=== PATIENT | male | born 1970 | race African-American/Black ===

== ENCOUNTER → 2019-08-01 09:28 | Outpatient (CLI) | payer BC ==
[2019-08-01 10:16] LABS: HEMATOCRIT 42.3 % (42.0-54.0); HEMOGLOBIN 13.8 g/dL (13.5-17.5); MCH 29.5 pg (26.0-34.0); MCHC 32.6 g/dL (31.0-37.0); MCV 90.4 fL (80.0-100.0); MEAN PLATELET VOLUME 10.2 fL (7.4-10.4); PLATELET COUNT 294 10x3/uL (130-400); RBC 4.68 10x6/uL (4.20-6.10); RDW 12.5 % (11.5-14.5)
[2019-08-01 13:41] LABS: EOSINOPHILS 2 % (0-7); LYMPHOCYTES 53 % (15-50); MONOCYTES 7 % (2-11); NEUTROPHILS 36 % (40-80); PLATELET ESTIMATE NORMAL; ROULEAUX OCC
[2019-08-01 15:09] LABS: ERYTHROCYTE SEDIMENTATION RATE 3 mm/hr (0-15)
== END | disposition home or self-care (01) ==
LOC: D.NM 09:28
PROVIDERS: ATTEND Orthopaedic Surgery
DX: M25.562 Pain in left knee (principal)

== ENCOUNTER → 2019-08-14 11:17 | Outpatient (CLI) | payer BC ==
[2019-08-14 12:18] LABS: EOS BF 1 %; MACROPHAGES BF 25 %; NEUT - BF 15 %
== END | disposition home or self-care (01) ==
LOC: D.LABREF 11:17
PROVIDERS: ATTEND Orthopaedic Surgery
DX: M25.562 Pain in left knee (principal)

== ENCOUNTER 2019-11-15 13:10 | Inpatient (IN) | payer BC, OTHER ==
[~2019-11-15] VITALS: Ht 180.3 cm; Wt 100.0 kg
[2019-12-05] MEDS ORDERED: VOLTAREN75 MG PO (15:31)
[2019-12-05] MEDS ORDERED: ULTRAM50 MG PO (15:31)
[2019-12-05] MEDS ORDERED: PREDNISONE5 MG PO (15:32)
[2019-12-05] MEDS ORDERED: LOVASTATIN20 MG PO (15:32)
[2019-12-06 09:15] LABS: CALC OSMOLALITY 281 mosm/kg (275-300); CALCIUM 8.8 mg/dL (8.5-10.1); CARBON DIOXIDE 30.9 mmol/L (21.0-32.0); CHLORIDE - SERUM 102 mmol/L (98-107); CREATININE - SERUM 1.1 mg/dL (0.6-1.3); GLUCOSE 87 mg/dL (74-106); SODIUM 142 mmol/L (136-145); UREA NITROGEN 13 mg/dL (7-18); eGFR NON AFRICAN AMERICAN 75 mL/min (90-120)
[2019-12-06 09:17] LABS: APTT 29.2 SECONDS (22.8-39.4); INR 0.94 (0.85-1.17); PROTIME 12.5 SECONDS (11.6-15.0)
[2019-12-06 09:27] LABS: HEMATOCRIT 42.7 % (42.0-54.0); HEMOGLOBIN 14.4 g/dL (13.5-17.5); MCH 30.6 pg (26.0-34.0); MCHC 33.7 g/dL (31.0-37.0); MCV 90.7 fL (80.0-100.0); MEAN PLATELET VOLUME 9.6 fL (7.4-10.4); PLATELET COUNT 308 10x3/uL (130-400); RBC 4.71 10x6/uL (4.20-6.10); RDW 12.8 % (11.5-14.5); WBC 4.8 10x3/uL (4.8-10.8)
[2019-12-06 09:32] LABS: BILIRUBIN NEGATIVE (NEGATIVE); GLUCOSE NEGATIVE (NEGATIVE); KETONE NEGATIVE (NEGATIVE); NITRITE NEGATIVE (NEGATIVE); SPECIFIC GRAVITY 1.015 (1.005-1.020); UROBILINOGEN NORMAL (NORMAL)
[2019-12-06 11:05] LABS: EOSINOPHILS 2 % (0-7); LYMPHOCYTES 33 % (15-50); MONOCYTES 11 % (2-11); NEUTROPHILS 52 % (40-80)
[2019-12-06 11:06] LABS: ANISOCYTOSIS OCC; PLATELET ESTIMATE NORMAL
[2019-12-11] VITALS (7 sets, daily range): BP systolic 144–171; BP diastolic 91–103; Ht 180.3 cm; Wt 100.0 kg
--- NOTE | 2019-12-11 12:46 | NUR ---
HIBICLENSE ALCOHOL PREP DONE PRIOR TO CHLORAPREP
--- NOTE | 2019-12-11 15:00 | NUR ---
PT ARRIVED TO UNIT VIA BED ACCOMPANINED BY HOSPITAL STAFF. PT IS ALERT AND ORIENTED. IV TO RT FA PATENT AND INFUSING LR AT 100ML/HR. SCD'S IN PLACE. LEFT KNEE JUAQUNI WRAP CDI. PT BP ELEVATED. PT STATES PAIN 05/06. WCTM.
--- NOTE | 2019-12-11 15:12 | NUR ---
RECEIVED C/O INTENSE PAIN TO LEFT KNEE. GIVEN 15MG TORADOL SLOW IVP FOR SAME. WILL MONITOR.
--- NOTE | 2019-12-11 17:08 | MORECARE ---
CASE MANAGEMENT DISCHARGE SUMMARY PATIENT: CAITY AGUILAR JR UNIT: [id number] ADM DATE: 12/11/19 AGE: 49 : 70 SEX: M ROOM/BED: D.1210 AUTHOR: AMPARO,DOC PHYSICIAN: REFERRING PHYSICIAN: GABE GAMEZ MD DATE OF SERVICE: 12/11/19 Discharge Plan Patient Name: CAITY AGUILAR Facility: [facility]:[place] : 1970 Planned Disposition: Outpatient PT\OT Anticipated Discharge Date: 12/13/19 Discharge Date: Expected LOS: 2 Initial Reviewer: [email or web address] Initial Review Date: 12/11/2019 Generated: 12/11/19 6:07 pm DCP- Discharge Planning Updated by [email or web address]: Jessie English on 12/11/19 4:[address] DC PLAN: Return home w/ OP therapy. PROCEDURE: L TKA OP THERAPY APPOINTMENT DATE: Wednesday @ [facility]. CM met with patient to complete initial dc planning assessment. CM educated patient on the CM role and verbal consent given by patient to complete assessment. CM verified patient's address, phone number, and emergency contact phone numbers. Patient lives at home independently with his two kids ages 16 and 10. At discharge patient plans to return home and feels this is a safe discharge. CM discussed availability of home health, rehab services, and medical equipment. Patient chose outpatient therapy at [facility] [phone]. MIKE form presented, explained, and signed for [facility]. Signed form placed in chart and left with the patient. CM called and spoke to Ashley to make appointment. OP Therapy order faxed to [facility] @ fax number [phone]. Patient reports transportation to and from therapy will be his sister. Transportation provider at discharge will be his sister. CM will continue to follow and will assist as needed with dc plans/needs. Jessie English RN, [facility] DCPIA - Discharge Planning Initial Assessment Updated by [email or web address]: Jessie English on 12/11/19 5:03 pm * Is the patient Alert and Oriented? Yes * How many steps to enter\exit or inside your home? * PCP Dr. Matthias Engel * Pharmacy [facility] * Preadmission Environment Home with Family * ADLs Independent * Other Equipment No equipment delivered - Romi notified. * List name and contact numbers for known caregivers / representatives who currently or will assist patient after discharge: Sharmila Phillips - girlfriend - [phone] * Verbal permission to speak to the caregivers and representatives has been obtained from the patient. Yes * Community resources currently utilized None * Additional services required to return to the preadmission environment? Yes * Can the patient safely return to the preadmission environment? Yes * Has this patient been hospitalized within the prior 30 days at any hospital? No Patient Name: CAITY AGUILAR Page [id number] at 1708 All edits/amendments must be made on the electronic document DICTATION DATE: 12/11/191706 HIGHWAY DESIGN ENGINEER: GALO 12/11/191706 RPT#: [id number] DC DATE: STATUS: ADM IN [facility] [address] [place] [address] END OF REPORT
--- NOTE | 2019-12-11 17:15 | MORECARE ---
CASE MANAGEMENT DISCHARGE SUMMARY PATIENT: CAITY AGUILAR JR UNIT: [id number] ADM DATE: 12/11/19 AGE: 49 : 70 SEX: M ROOM/BED: D.1210 AUTHOR: AMPARO,DOC PHYSICIAN: REFERRING PHYSICIAN: GABE GAMEZ MD DATE OF SERVICE: 12/11/19 Discharge Plan Patient Name: CAITY AGUILAR Facility: [facility]:[place] : 1970 Planned Disposition: Outpatient PT\OT Anticipated Discharge Date: 12/13/19 Discharge Date: Expected LOS: 2 Initial Reviewer: [email or web address] Initial Review Date: 12/11/2019 Generated: 12/11/19 6:15 pm DCP- Discharge Planning Updated by [email or web address]: Jessie English on 12/11/19 4:[address] DC PLAN: Return home w/ OP therapy. PROCEDURE: L TKA OP THERAPY APPOINTMENT DATE: Wednesday @ [facility]. CM met with patient to complete initial dc planning assessment. CM educated patient on the CM role and verbal consent given by patient to complete assessment. CM verified patient's address, phone number, and emergency contact phone numbers. Patient lives at home independently with his two kids ages 16 and 10. At discharge patient plans to return home and feels this is a safe discharge. CM discussed availability of home health, rehab services, and medical equipment. Patient chose outpatient therapy at [facility] [phone]. MIKE form presented, explained, and signed for [facility]. Signed form placed in chart and left with the patient. CM called and spoke to Ashley to make appointment. OP Therapy order faxed to [facility] @ fax number [phone]. Patient reports transportation to and from therapy will be his sister. Transportation provider at discharge will be his sister. CM will continue to follow and will assist as needed with dc plans/needs. Jessie English RN, [facility] DCPIA - Discharge Planning Initial Assessment Updated by [email or web address]: Jessie English on 12/11/19 5:03 pm * Is the patient Alert and Oriented? Yes * How many steps to enter\exit or inside your home? * PCP Dr. Matthias Engel * Pharmacy [facility] * Preadmission Environment Home with Family * ADLs Independent * Other Equipment No equipment delivered - Romi notified. * List name and contact numbers for known caregivers / representatives who currently or will assist patient after discharge: Sharmila Phillips - girlfriend - [phone] * Verbal permission to speak to the caregivers and representatives has been obtained from the patient. Yes * Community resources currently utilized None * Additional services required to return to the preadmission environment? Yes * Can the patient safely return to the preadmission environment? Yes * Has this patient been hospitalized within the prior 30 days at any hospital? No Coverage Notice Reviewer: [id number] Inocencia English Notice Issued Date-Time: 12/11/2019 16:15 Notice Type: Patient Choice Letter Notice Delivered To: Patient Relationship to Patient: Cattle Knocker Name: Delivery Method: - Julia Days: Prior Verbal Notification: Recipient Understood Notice: Yes Recipient Signature: Yes Med Rec Note Co-signed by Attending: Coverage Notice Comment: [facility] Last DP export: 12/11/19 4:08 p Patient Name: CAITY AGUILAR Page [phone] at 1715 All edits/amendments must be made on the electronic document DICTATION DATE: 12/11/191714 WATER CHASER: GALO 12/11/191714 RPT#: [id number] DC DATE: STATUS: ADM IN [facility] [address] [place] [address] END OF REPORT
--- NOTE | 2019-12-11 17:45 | NUR ---
PT EATING DINNER. BP REMAINS SLIGHTLY ELEVATED. WCTM.
--- NOTE | 2019-12-11 19:30 | NUR ---
SITTING UP IN BED WATCHING TV. ALERT AND ORIENTED X4. RESP EVEN AND NONLABORED. JUAQUIN WRAP NOTED TO LT KNEE WITH BLOODY DRAINAGE NOTED FROM EARLIER. ICE PACK IN USE. PLEXI BOOT NOTED TO LT FOOT. SCD NOTED TO RLE. 1/2 NS @ 100 MLHR INFUSING IN RT FOREARM. RATES PAIN IN LT KNEE 7. CL IN REACH.
--- NOTE | 2019-12-11 23:25 | NUR ---
MEDICATED WITH PERCOCET FOR C/O LT KNEE PAIN. CL IN REACH.
[2019-12-12 00:58] VITALS: BP 145/97
[2019-12-12 04:00] VITALS: BP 118/76
--- NOTE | 2019-12-12 04:41 | NUR ---
BED BATH AND LINEN CHANGE PERFORMED AT THIS TIME PER TECH. CL IN REACH.
[2019-12-12 06:56] LABS: HEMATOCRIT 37.9 % (42.0-54.0); HEMOGLOBIN 12.3 g/dL (13.5-17.5); MCH 29.6 pg (26.0-34.0); MCHC 32.5 g/dL (31.0-37.0); MCV 91.3 fL (80.0-100.0); MEAN PLATELET VOLUME 9.8 fL (7.4-10.4); RBC 4.15 10x6/uL (4.20-6.10); RDW 12.6 % (11.5-14.5); WBC 7.7 10x3/uL (4.8-10.8)
--- NOTE | 2019-12-12 07:30 | NUR ---
AWAKE AND ALERT. ORIENTED X3. C/O SOME PAIN TO LEFT KNEE. WILL MONITOR. ALSO HAS HICCUPS AT THIS TIME. WILL MONITOR. LUNGS ARE CLEAR BILATERALLY, NO COUGH NOTED. SKIN IS INTACT WITHOUT REDNESS EXCEPT INCISION TO LEFT KNEE WHICH HAS A DRY INTACT DRESSING IN PLACE. IV TO RIGHT FOREARM IS PATENT WITHOUT REDNESS AT INSERTION SITE. BREAKFAST SERVED IN ROOM. DENIES NEEDS.
--- NOTE | 2019-12-12 07:30 | NUR ---
AWAKE AND ALERT. ORIENTED X3. C/O LEFT KNEE PAIN LEVEL 4. WILL MONITOR. LUNGS ARE CLEAR BILATERALLY, NO COUGH NOTED. SKIN IS INTACT WITHOUT REDNESS EXCEPT INCISION TO LEFT KNEE WHICH HAS A DRY INTACT DRESSING IN PLACE. BREAKFAST SERVED IN ROOM. DENIES NEEDS.
[2019-12-12 08:11] VITALS: BP 127/72
--- NOTE | 2019-12-12 10:04 | NUR ---
REQUESTED PAIN MED FOR PAIN LEVEL 8 TO LEFT KNEE. GIVEN ONE PERCOCET PO FOR SAME. WILL MONITOR. UP TO CHIAR AT BEDSIDE PER PT. DENIES OTHER NEEDS. CONTINUES WITH HICCUPS.
--- NOTE | 2019-12-12 12:00 | NUR ---
LUNCH SERVED IN ROOM. FEEDS SELF. DENIES NEEDS.
[2019-12-12 12:21] VITALS: BP 127/81
--- NOTE | 2019-12-12 13:00 | NUR ---
BACK TO BED PER PT. CONTINUES WITH HICCUPS.
--- NOTE | 2019-12-12 14:30 | NUR ---
NOTIFIED [facility] HICKMAN APN OF CONTINUED HICCUPS. NEW ORDERS RECEIVED.
--- NOTE | 2019-12-12 15:32 | NUR ---
REQUESTED AND GIVEN ONE PERCOCET PO FOR C/O LEFT KNEE PAIN LEVEL 10. WILL MONITOR.
[2019-12-12 16:45] VITALS: BP 160/98
--- NOTE | 2019-12-12 18:00 | NUR ---
ATE ONLY A FEW BITES OF SUPPER. WAS WORN OUT FROM HICCUPS. THESE HAVE FINALLY STOPPED. NO CHANGES NOTED. DENIES NEEDS.
[2019-12-12 19:44] VITALS: BP 144/79
--- NOTE | 2019-12-12 19:50 | NUR ---
LYING IN BED. ALERT AND ORIENTED X4. HICCUPS STARTED BACK UP AGAIN. RESP IRREG, NONLABORED. C/O PAIN IN LT KNEE 7. JUAQUIN WRAP NOTED WITH OLD DRAINAGE. PLEXI BOOT ON LT FOOT. SCD ON RLE. USES URINAL. SALINE LOCK NOTED TO RT FOREARM. TEMP IS ELEVATED. ENCOURAGED USE OF I.S. HE STATED E HAD BEEN USING IT. SR ELEVATED X2. CL IN REACH. PEDAL PULSES STRONG BILAT.
--- NOTE | 2019-12-12 20:00 | NUR ---
MEDICATED WITH TORADOL FOR C/O PAIN IN LT KNEE. CL IN REACH.
--- NOTE | 2019-12-13 00:30 | NUR ---
STILL HAS HICCUPS. MEDICATED WITH THORAZINE PO ORDERED FOR THIS. C/O PAIN IN LT KNEE. MEDICATED WITH PERCOCET ORDERED. CL IN REACH.
[2019-12-13 00:31] VITALS: BP 145/92
--- NOTE | 2019-12-13 01:33 | NUR ---
RESTING WITH EYES CLOSED. RESP SHALLOW, NONLABORED. NO HICCUPS. CL IN REACH.
--- NOTE | 2019-12-13 03:04 | NUR ---
LYING IN BED WITH EYES CLOSED. RESP EVEN AND NONLABORED. NO DISTRESS. CL IN REACH.
--- NOTE | 2019-12-13 04:10 | NUR ---
SWAGE TOOLSETTER OFFERED TO ASSIST PT WITH BATH AND HE STATES HE WILL DO IT LATER AROUND 0530 OR 0600.
[2019-12-13 04:26] VITALS: BP 140/83
--- NOTE | 2019-12-13 05:00 | NUR ---
MEDICATED WITH PERCOCET FOR C/O PAIN IN LT KNEE RATING 7. CL IN REACH.
[2019-12-13 06:10] LABS: HEMATOCRIT 33.4 % (42.0-54.0); HEMOGLOBIN 10.8 g/dL (13.5-17.5); MCH 29.2 pg (26.0-34.0); MCHC 32.3 g/dL (31.0-37.0); MCV 90.3 fL (80.0-100.0); MEAN PLATELET VOLUME 9.9 fL (7.4-10.4); RBC 3.7 10x6/uL (4.20-6.10); RDW 12.5 % (11.5-14.5); WBC 7.4 10x3/uL (4.8-10.8)
[2019-12-13 09:07] VITALS: BP 148/98
--- NOTE | 2019-12-13 09:10 | NUR ---
PT ALERT X 4. BREATH SOUNDS CLEAR BILAT. HICCUPS. IV TO RIGHT FOREARM, SALINE LOCKED. JUAQUIN TO LEFT KNEE, SWELLING. PT REPORTING PAIN OF 7/10, MEDICATED PER ORDERS, WILL MONITOR. BED LOW, CALL LIGHT IN REACH. NO OTHER NEEDS AT THIS TIME.
--- NOTE | 2019-12-13 11:11 | OP ---
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 POSTOPERATIVE DIAGNOSIS: Painful total knee arthroplasty of the left knee. PROCEDURE: Revision total knee arthroplasty. SURGEON: Gabe Gamez MD ANESTHESIA: HENNA Fortune INTRAOPERATIVE COMPLICATIONS: None. SUMMARY OF PATHOLOGIC FINDINGS: Upon entering the knee, the patient mostly had a very large effusion. There was evidence of lucency underneath the prosthesis as it was removed very easily from the femoral side. The patient also had a very long, approximately 6 cm x 1 cm x 1 cm heterotopic ossification in the mid substance of the quad muscle. This required excision and extensive quadriceps repair after the total knee arthroplasty was revised. The total knee revision was the Triathlon system, size 5 distal femur with a 15 x 150 fluted stem. The tibial baseplate was a size 5 with a 6 mm offset set at 12 o'clock with 17 x 100 stem in the tibia. All was cemented. The tibial baseplate X3 polyethylene size 5. ESTIMATED BLOOD LOSS: 200 cc. OPERATIVE SUMMARY IN DETAIL: After obtaining the appropriate preoperative orthopedic surgery consent as well as anesthetic consultation, evaluation, and clearance, the patient was brought to the operating room and placed on the operating table in the supine position. After adequate general laryngeal mask airway was administered, tourniquet was placed on the proximal aspect of left lower extremity. Left lower extremity was then prepped and draped in routine sterile fashion. The leg was exsanguinated. Tourniquet inflated to 350 mmHg. Incision was made midline with the previous incision made. This was dissected carefully down to the paramedian aspect of the knee where it does appear the patient had a previous straight line incision with a medial patellar heal rather than a paramedian arthrotomy. At this time; however paramedian arthrotomy was performed. Careful dissection was done in the mid substance of the quad to entirely identify the large area of heterotopic ossification as mentioned above. It was removed en bloc and sent to pathology for permanent specimen. At this point, further takedown was required including partial tibial tubercle release of the patella tendon, which was enhanced with fixation at the end of the case using a suture anchor from Arthrex. After exposure of the knee, the cross pin of the Biomet prosthesis was removed as was the polyethylene. Next with very little bone loss and very little degree of difficulty, distal femur was removed after a few passes with flexible osteotomes. This was indicating that a bone scan was likely right in its loosening. Again, there was no evidence for infection. Having completed this, the tibial baseplate was likewise removed and it was also rather easily removed, all excess cobalt blue cement was removed as well. Serial and sequential reaming of the femur was then followed by measurements and chamfer cuts. The trial corresponding to the above size was OPERATIVE REPORT [id number] CAITY AGUILAR JR put into place and it fit nicely. Attention was then returned to the proximal tibia. After all intramedullary cement had been removed, serial and sequential reaming were done for a size 17. Proximal cleanup cut was done and then the size 5 trial was put into place and it was found that a 6 mm offset set at 12:00 was most appropriate for appropriate base plate positioning. This was then held into place with the pins while proximal tibia stamping was done for final preparations. Guide was then put and several different trials were put in. It was felt that the 11 was most stable as 13 seemed to be too tight and 9 was somewhat unstable; [address], taken through range of motion and found to be stable in all planes. At this point, all of the trials were removed. Pulsatile irrigation was then done to the entire cavity, removal of all small loose debris was then followed by cementing the implants which had been put together on the back table. The implants were cemented into place and the polyethylene was put into place. The knee was reduced, taken through range of motion and found to be stable in all planes. At this point, a suture anchor from Arthrex was placed into the tibial tuberosity and the 2 tails of the FiberWire were then placed through the patella tendon to reinforce the patellar tendon that had been gently released for exposure. Having completed this, the proximal quadriceps tendon that required excision of the large heterotopic ossification was reconstructed using Ethibond with a slight VMO advancement and repair of the area that was left cavitary. The paramedian arthrotomy was then closed with #2 Ethibond by Abdiel Mondragon after the knee was filled with a gram of vancomycin and a gram of tobramycin. Having completed this, the skin was reapproximated with #1 Vicryl followed by 2-0 Vicryl and skin ming. Sterile dressings were applied. Tourniquet was deflated. A compass hinged knee brace was placed with a 0 to 30 lock. The patient was awakened and taken to recovery in stable condition. All final needle and sponge counts were correct. TRANSINT:[id number] Voice Confirmation ID: [id number] DOCUMENT ID: [id number] VERA GAR, GABE CHAPA at 1111 CC: [id number] DICTATION DATE: 12/11/19 1408 KITCHEN SUPERVISOR: 12/11/19 2229 ADM IN [facility] [id number] [place] [address]
--- NOTE | 2019-12-13 19:26 | NUR ---
PATIENT RESTING IN BED WITH NO S/S OF DISTRESS AND REQUESTED A PAIN PILL. PATIENT DENIES OTHER NEEDS AT THIS TIME. BED IN LOWEST POSITION AND CALL LIGHT WITHIN REACH. ENCOURAGED THE PATIENT TO CALL IF HE HAS OTHER NEEDS. WILL CONTINUE TO MONITOR.
[2019-12-13 20:25] VITALS: BP 122/58; BP 130/67
[2019-12-14] VITALS: BP 126/89
[2019-12-14 05:08] VITALS: BP 140/88
[2019-12-14 07:00] VITALS: BP 138/82
--- NOTE | 2019-12-14 07:17 | NUR ---
PT IS SITTING IN BED WITH EYES OPEN. RESPIRATIONS ARE EVEN AND UNLABORED. PT IS AAO X 4. INCENTIVE SPIROMETER AT BEDSIDE. DRESSING TO LEFT KNEE NOTED WITH SMALL AMOUNT OF DRIED BLOODY DRAINAGE AT BOTTOM OF JUAQUIN WRAP. PT DENIES PRESENCE OF NUMBNESS/TINGLING TO BUE AND BLE EXTREMITIES. BILATERAL PEDAL PULSES PALP AND CAP REFILL IS < 3. PT DENIES PRESENCE OF N/V AT THIS TIME. BED IS IN LOWEST POSITION. CALL LIGHT AND BEDSIDE TABLE ARE WITHIN REACH. SIDE RAILS X 2. PT DENIES FURTHER NEEDS. WILL CONT TOMONITOR.
[2019-12-14] MEDS ORDERED: ATARAX 25 MG TA25 MG PO (08:27)
[2019-12-14] MEDS ORDERED: PERCOCET 10-321 EAC1 PO (08:27)
[2019-12-14] MEDS ORDERED: ELIQUIS2.5 MG PO (08:27)
[2019-12-14 11:00] VITALS: BP 137/94
--- NOTE | 2019-12-14 11:54 | NUR ---
DRESSING CHANGED PER ORDER. ALL DISCHARGE INSTRUCTIONS COVERED WITH PT. PT DENIES FURTHER QUESTIONS/CONCERNS/NEEDS AT THIS TIME. PIV TO RIGHT FA REMOVED WITH CATHETER TIP INTACT. DRESSING APPLIED. ALL DISCHARGE PAPERS SIGNED BY PT. PT TO NOTIFY NURSE OF NEED OF TRANSPORT WHEN TRANSPORTATION HOME ARRIVES. PT DENIES FURTHER NEEDS. SIGNED DISCHARGE PAPERS PLACED IN PT CHART.
--- NOTE | 2019-12-14 13:13 | NUR ---
PT TRANSPORTED OFF FLOOR VIA [facility] ESCORTED BY [facility]. PT DENIES FURTHER QUESTIONS/CONCERNS/NEEDS AT THIS TIME. PT THANKS THIS NURSE FOR CARE GIVEN DURING THIS SHIFT.
--- NOTE | 2019-12-15 14:04 | MORECARE ---
CASE MANAGEMENT DISCHARGE SUMMARY PATIENT: CAITY AGUILAR JR UNIT: [id number] ADM DATE: 12/11/19 AGE: 49 : 70 SEX: M ROOM/BED: D.1210 AUTHOR: AMPARO,DOC PHYSICIAN: REFERRING PHYSICIAN: GABE GAMEZ MD DATE OF SERVICE: 12/15/19 Discharge Plan Patient Name: CAITY AGUILAR Facility: [facility]:[place] : 1970 Planned Disposition: Outpatient PT\OT Anticipated Discharge Date: 12/13/19 Discharge Date: 12/14/2019 Expected LOS: 2 Initial Reviewer: [email or web address] Initial Review Date: 12/11/2019 Generated: 12/15/19 3:04 pm DCP- Discharge Planning Updated by [email or web address]: Jessie English on 12/11/19 4:[address] DC PLAN: Return home w/ OP therapy. PROCEDURE: L TKA OP THERAPY APPOINTMENT DATE: Wednesday @ 08. CM met with patient to complete initial dc planning assessment. CM educated patient on the CM role and verbal consent given by patient to complete assessment. CM verified patient's address, phone number, and emergency contact phone numbers. Patient lives at home independently with his two kids ages 16 and 10. At discharge patient plans to return home and feels this is a safe discharge. CM discussed availability of home health, rehab services, and medical equipment. Patient chose outpatient therapy at [facility] [phone]. MIKE form presented, explained, and signed for [facility]. Signed form placed in chart and left with the patient. CM called and spoke to Ashley to make appointment. OP Therapy order faxed to [facility] @ fax number [phone]. Patient reports transportation to and from therapy will be his sister. Transportation provider at discharge will be his sister. CM will continue to follow and will assist as needed with dc plans/needs. Jessie English RN, [facility] DCPIA - Discharge Planning Initial Assessment Updated by [id number]: Jessie English on 12/11/19 5:03 pm * Is the patient Alert and Oriented? Yes * How many steps to enter\exit or inside your home? * PCP Dr. Matthias Engel * Pharmacy [facility] * Preadmission Environment Home with Family * ADLs Independent * Other Equipment No equipment delivered - Romi notified. * List name and contact numbers for known caregivers / representatives who currently or will assist patient after discharge: Sharmila Phillips - girlfriend - [phone] * Verbal permission to speak to the caregivers and representatives has been obtained from the patient. Yes * Community resources currently utilized None * Additional services required to return to the preadmission environment? Yes * Can the patient safely return to the preadmission environment? Yes * Has this patient been hospitalized within the prior 30 days at any hospital? No Coverage Notice Reviewer: [id number] Inocencia English Notice Issued Date-Time: 12/11/2019 16:15 Notice Type: Patient Choice Letter Notice Delivered To: Patient Relationship to Patient: Electrical Service Technician Name: Delivery Method: - Julia Days: Prior Verbal Notification: Recipient Understood Notice: Yes Recipient Signature: Yes Med Rec Note Co-signed by Attending: Coverage Notice Comment: [facility] Last DP export: 12/11/19 4:15 p Patient Name: CAITY AGUILAR Page [id number] at 1404 All edits/amendments must be made on the electronic document DICTATION DATE: 12/15/191403 CNC SET UP OPERATOR: GALO 12/15/19 1404 RPT#: [id number] DC DATE:12/14/19 STATUS: DIS IN [facility] [address] [place] [address] END OF REPORT
== END 2019-12-14 13:44 | disposition home or self-care (01) | DRG 468 ==
LOC: D.SDCHOLD 12-11 08:40 → D.M3 12-11 08:40 → D.SDCHOLD 12-11 10:00 → D.M3 12-11 14:57
PROVIDERS: ADMIT Orthopaedic Surgery; ATTEND Orthopaedic Surgery
PROC: 0SRD069 Replacement of Left Knee Joint with Oxidized Zirconium on Polyethylene Synthetic Substitute, Cemented, Open Approach (ICD-10-PCS; 2019-12-11)
PROC: 0SPD0JZ Removal of Synthetic Substitute from Left Knee Joint, Open Approach (ICD-10-PCS; principal; 2019-12-11 11:15)
DX: T84.84XA Pain due to internal orthopedic prosthetic devices, implants and grafts, initial encounter (principal); Y84.9 Medical procedure, unspecified as the cause of abnormal reaction of the patient, or of later complication, without mention of misadventure at the time of the procedure; I10 Essential (primary) hypertension; G47.00 Insomnia, unspecified

== ENCOUNTER → 2020-05-07 11:53 | Outpatient (CLI) | payer BC, OTHER ==
[2019-12-11 15:09] VITALS: BMI 30.7
[~2020-05-07 11:53] MED LIST: ATARAX 25 MG TA25 MG PO; ELIQUIS2.5 MG PO; LOVASTATIN20 MG PO; PERCOCET 10-321 EAC1 PO; PREDNISONE5 MG PO; ULTRAM50 MG PO; VOLTAREN75 MG PO
[2020-05-07 12:18] LABS: BASOPHILS 0.4 % (0-2); EOSINOPHILS 3.6 % (0-7); HEMATOCRIT 42.4 % (42.0-54.0); HEMOGLOBIN 13.6 g/dL (13.5-17.5); IMMATURE GRANULOCYTES 0.2 % (0-5); LYMPHOCYTES 41.8 % (15-50); MCH 28.6 pg (26.0-34.0); MCHC 32.1 g/dL (31.0-37.0); MCV 89.1 fL (80.0-100.0); MEAN PLATELET VOLUME 9.4 fL (7.4-10.4); MONOCYTES 8.9 % (2-11); NEUTROPHILS 45.1 % (40-80); RBC 4.76 10x6/uL (4.20-6.10); RDW 12.7 % (11.5-14.5); WBC 5.3 10x3/uL (4.8-10.8)
[2020-05-07 12:19] LABS: PLATELET COUNT 250 10x3/uL (130-400)
[2020-05-07 12:25] LABS: C-REACTIVE PROTEIN 0.7 mg/dL (0.0-0.9); CALC OSMOLALITY 278 mosm/kg (275-300); CALCIUM 8.6 mg/dL (8.5-10.1); CARBON DIOXIDE 31.6 mmol/L (21.0-32.0); CHLORIDE - SERUM 103 mmol/L (98-107); CREATININE - SERUM 1.1 mg/dL (0.6-1.3); GLUCOSE 97 mg/dL (74-106); SODIUM 139 mmol/L (136-145); UREA NITROGEN 16 mg/dL (7-18); eGFR NON AFRICAN AMERICAN 75 mL/min (90-120)
[2020-05-07 13:40] LABS: ERYTHROCYTE SEDIMENTATION RATE 7 mm/hr (0-15)
== END | disposition home or self-care (01) ==
LOC: D.LAB 11:53
PROVIDERS: ATTEND Orthopaedic Surgery
DX: M25.562 Pain in left knee (principal)

== ENCOUNTER → 2020-05-20 08:58 | Outpatient (CLI) | payer MEDICARE, OTHER ==
[2019-12-11 15:09] VITALS: BMI 30.7
== END | disposition home or self-care (01) ==
LOC: D.NM 08:58
PROVIDERS: ATTEND Orthopaedic Surgery
DX: M25.562 Pain in left knee (principal)

== ENCOUNTER → 2020-05-23 11:09 | Outpatient (CLI) | payer BC, OTHER ==
[2019-12-11 15:09] VITALS: BMI 30.7
--- NOTE | ~2020-05-23 | HEMODYNAMI ---
PATIENT:CAITY AGUILAR JR MEDICAL RECORD: [id number] : 70 [id number] ADMISSION DATE: 05/23/20 Generatedon:05/23/202011:55 Patient name: CAITY AGUILAR Patient #: [id number] SSN: : 1970 Date of study: 05/23/2020 Page: Of Hemodynamic Procedure Report Patient Data Patient Demographics Procedure consent was obtained First Name: CAITY Gender: Male Last Name: LAUREN Suffix: [facility] Initial: ERIN : 1970 Patient #: [id number] Age: 49 year(s) Race: Black Additional ID: [id number] Contact details [address]: [address] [place] [address] State: [place] City: [place] Zip code: [address] Past Medical History Allergies: No known allergies Admission Admission Data Admission Date: 05/23/2020 Admission Time: 11:09 Procedure Procedure Types Cath Procedure Peripheral Cath Diagnostic Procedure Miscellaneous Aspiration/Injection (Joint) Procedure Description Procedure Date Procedure Date: 05/23/2020 Procedure Start Time: 11:45 Procedure Staff Name Function Pancho Armstrong MD Performing Physician GUANACO MONROY RT Monitor Procedure Data Cath Procedure Fluoroscopy Diagnostic fluoroscopy Total fluoroscopy Time: 2 time: 2 min min Diagnostic fluoroscopy Total fluoroscopy dose: 1 dose: 1 mGy mGy Hemodynamics Rest Pre Cath Intra NCS Post Cath Procedure Log Time Note 11:35:36 GUANACO MONROY RT (R) sent for patient. Start room use. 11:35:37 Time tracking: Regular hours (M-F 7:00 - 5:00) 11:35:43 Patient received from Other to IR Alert and oriented. Tansferred to table in Supine position. 11:35:45 Signed procedure consent form obtained from patient. 11:35:47 Warm blankets applied, and samantha hugger turned on for patient comfort. 11:35:47 Correct patient and procedure confirmed by team. 11:35:48 - 11:35:50 Pre-procedure instructions explained to patient. 11:36:28 Patient allergic to No known allergies 11:36:29 Is patient on blood thinner?No 11:36:33 - 11:36:39 Left Knee was prepped with chlora-prep and draped in sterile fashion. 11:36:41 - 11:39:39 Physician paged 11:44:19 Physician arrived 11:44:19 --------ALL STOP TIME OUT------ 11:44:30 Left knee site verified by team. 11:45:05 Procedure started. 11:45:05 Full Disclosure recording started 11:45:10 SAFE-T PLUS MYELOGRAM TRAY opened to sterile field. 11:45:24 Local anesthetic to Left Knee with Lidocaine 1% by Pancho Armstrong MD.INITIAL ACCESS ONLY 11:50:17 Procedure ended.(Physican Out) 11:54:24 Fluoroscopy time 02.00 minutes. 11:54:26 Fluoroscopy dose: 1 mGy 11:54:26 Flurop Dose total: 1 11:54:32 Post procedure instruction explained to patient.Patient verbalizes understanding. 11:54:45 Post Left Knee:stable, clean and dry 11:54:49 Procedure and supply charges have been captured, reviewed, submitted an d are correct. Device Usage Item Name Manufacture Quantity Catalog Hospital Part Current Minimal Lot# / Number Charge Number Stock Stock Serial# Code SAFE-T [employer] 1 [id number] PLUS MYELOGRAM TRAY Signature Audit [place] Stage Time Signature Unsigned Intra-Procedure 05/23/2020 GUANACO MONROY RT 11:55:20 AM (R) [facility] [address] [place] [address]
== END | disposition home or self-care (01) ==
LOC: D.RAD 11:09
PROVIDERS: ATTEND Orthopaedic Surgery
DX: M25.562 Pain in left knee (principal)

== ENCOUNTER 2020-05-30 08:27 | Day surgery (SDC) | payer BC, OTHER ==
[~2020-05-30] VITALS: Ht 180.3 cm; Wt 99.8 kg
--- NOTE | ~2020-05-30 | OP ---
PATIENT NAME: CAITY AGUILAR JR MEDICAL RECORD: [id number] :70 LOCATION:[facility] ADMISSION DATE: SURGEON: GABE GAMEZ MD DATE OF OPERATION: 05/30/2020 PREOPERATIVE DIAGNOSIS: Stiff painful total knee arthroplasty. POSTOPERATIVE DIAGNOSIS: Stiff painful total knee arthroplasty. PROCEDURES: 1. Diagnostic arthroscopy of the left knee. 2. Biopsy of the synovium. 3. Aspiration of the left knee. 4. Manipulation of the left knee. SURGEON: Gabe Gamez MD ANESTHESIA: General. INTRAOPERATIVE COMPLICATIONS: None. SUMMARY OF PATHOLOGIC FINDINGS: The patient did not have profound synovitis and a tap today did reveal approximately 30 cc of serosanguineous fluid. This was sent for synovial fluid analysis with cultures. The patient does have an extremely stiff knee and this may be all arthrofibrosis related. INDICATIONS: A 49-year-old male who has had a complete workup. He came to me for revision of total knee arthroplasty, which has been painful for him since it was done. His workup for infection has been negative. His workup for inflammation has been negative. His bone scan has been essentially negative, but he has continued severe swelling. Surgery as performed today was then proceeded with. OPERATIVE SUMMARY IN DETAIL: After obtaining the appropriate preoperative orthopedic surgery consent as well as anesthetic consultation, evaluation and clearance, the patient was brought to the operating room and placed on the operating table in supine position. After adequate general laryngeal mask was administered, tourniquet was placed on the proximal aspect of left lower extremity. Left lower extremity was then prepped and draped in routine sterile fashion. The leg was elevated and exsanguinated, tourniquet was inflated to 350 mmHg. A routine timeout was taken and agreed upon by all given the patient's unique identifiers. Arthroscopy was established in the knee cavity. Diagnostic arthroscopy did not reveal a substantial amount of synovitis, only a very substantial amount of scar tissue. Lysis of adhesions was performed. The portion were I thought there might be the best synovial sample was biopsied multiple times and sent for permanent section. Prior to beginning arthroscopy; however, it is noted that an 18-gauge spinal needle was utilized to retrieve approximately 30 cc of fluid as described above. After biopsies have been taken and multiple lysis of adhesions had been done, the knee was then manipulated with only approximately manipulation achieved to about 100 degrees and extension to approximately -10 degrees. The knee was insufflated with 0.25% Marcaine plain. Arthroscopy portals were closed in routine interrupted fashion using 4-0 Prolene. Sterile dressings were applied. The patient was awakened and taken to recovery room in OPERATIVE REPORT [id number] CAITY AGUILAR JR stable condition. All final needle and sponge counts were correct. TRANSINT:[id number] Voice Confirmation ID: [id number] DOCUMENT ID: [id number] VERA GAR, GABE CHAPA CC: [id number] DICTATION DATE: 05/30/20 1311 CONSOLE OPERATOR: 05/30/20 1608 [facility] [place] 05/30/20 [place] [id number] [place] [id number]
[~2020-05-30 08:27] MED LIST changes: +HYDROCODON-ACE1 EA10 PO; +HYDROCODON-ACE1 EAC7 PO
[2020-05-30 09:24] VITALS: BP 138/90; Ht 180.3 cm; Wt 99.8 kg
[2020-05-30] MEDS ORDERED: HYDROCODON-ACE1 EA10 PO (13:12)
--- NOTE | 2020-05-30 16:03 | NUR ---
1530IV REMOVED AND PT DRESSED. VOIDED X1. DRESSING CDI. INSTRUCTIONS GIVEN
[2020-05-30 17:46] LABS: PROTEIN - BODY FLUID 3.4 G/DL
[2020-05-30 18:35] LABS: NEUT - BF 71 %
== END 2020-05-30 15:40 | disposition home or self-care (01) ==
LOC: D.OPS 08:27
PROVIDERS: ATTEND Orthopaedic Surgery
DX: M25.562 Pain in left knee (principal); M65.862 Other synovitis and tenosynovitis, left lower leg; Z96.652 Presence of left artificial knee joint